=== PATIENT | female | born 1930 | race Caucasian/White ===

== ENCOUNTER 2017-05-02 15:19 | Emergency (ER) | payer MEDICARE, BC ==
--- NOTE | 2017-05-02 15:31 | EDM.PDOC ---
ED HPI GENERAL MEDICAL PROBLEM - General Chief Complaint: General Stated Complaint: Weakness Time Seen by Provider: 05/02/17 15:21 Source of Information: Reports: EMS, EMS Notes Reviewed, Family, RN, RN Notes Reviewed History Limitations: Reports: No Limitations - History of Present Illness INITIAL COMMENTS - FREE TEXT/NARRATIVE: Patient is brought to the ED at [facility] via EMS for weakness. According to EMS, family was trying to help patient get to the restroom and they were unable due to patient's weakness. No other symptoms. No other concerns outside of weakness. Patient offers no specific complaints. Patient is a resident of [facility]. She was over visiting her son today for the holiday. No falls. No head injury. No chest pain. No SOB. Onset: Today - Related Data Allergies Allergy/AdvReac Type Severity Reaction Status Date / Time codeine Allergy Edema Verified 05/02/17 16:11 Penicillins Allergy Rash Verified 05/02/17 16:11 meperidine HCl [From Demerol] AdvReac Nausea Verified 05/02/17 16:11 Home Meds: Home Meds Acetaminophen [Acetaminophen ER] 650 mg PO TID 10/24/15 [History] Benazepril [Lotensin] 10 mg PO BEDTIME 10/24/15 [History] Benazepril [Lotensin] 20 mg PO DAILY 10/24/15 [History] Budesonide [Pulmicort] 1 inh NEB DAILY 10/24/15 [History] Calcium Carbonate [Calcium] 1,250 mg PO BID 10/24/15 [History] Cholecalciferol (Vitamin D3) [Vitamin D3] 1,000 units PO DAILY 10/24/15 [History ] Cyanocobalamin (Vitamin B12) [Vitamin B12] 1 injection IM Q30D 10/24/15 [History ] Iron Polysaccharide Complex [Ferrex 150] 150 mg PO BIDMEALS 10/24/15 [History] Levothyroxine 50 mcg PO ACBREAKFAST 10/24/15 [History] Pravastatin [Pravachol] 40 mg PO DAILY 10/24/15 [History] Propranolol [Inderal] 10 mg PO BID 10/24/15 [History] amLODIPine [Norvasc] 5 mg PO DAILY 10/24/15 [History] Acetaminophen 650 mg PO Q4H PRN 05/02/17 [History] Albuterol [Ventolin HFA] 8 gm INH BID PRN 05/02/17 [History] Bisacodyl 10 mg RC DAILY PRN 05/02/17 [History] Furosemide [Lasix] 40 mg PO DAILY 05/02/17 [History] Hydrocortisone [Preparation H] 26 gm TP BID PRN 05/02/17 [History] Nitrofurantoin [place]/Macrocryst [Macrobid] 100 mg PO BID #12 cap 05/02/17 [Rx] Nystatin 15 gm TP BID PRN 05/02/17 [History] Sennosides [Senna] 8.6 mg PO BID 05/02/17 [History] risperiDONE [Risperdal] 0.5 mg PO DAILY 05/02/17 [History] risperiDONE [Risperdal] 1 mg PO DAILY 05/02/17 [History] Past Medical History HEENT History: Reports: Cataract, Macular Degeneration Cardiovascular History: Reports: Hypertension Respiratory History: Reports: Interstitial Lung Disease Genitourinary History: Reports: Urinary Incontinence Musculoskeletal History: Reports: Osteoarthritis Neurological History: Reports: TIA Endocrine/Metabolic History: Reports: Hypothyroidism - Past Surgical History HEENT Surgical History: Reports: Tonsillectomy Cardiovascular Surgical History: Reports: Carotid Endarterectomy Musculoskeletal Surgical History: Reports: Other (See Below) Social & Family History - Tobacco Use Smoking Status *Q: Never Smoker - Recreational Drug Use Recreational Drug Use: No - Living Situation & Occupation Living situation: Reports: Occupation: Retired ED ROS GENERAL - Review of Systems Review Of Systems: See Below Constitutional: Reports: Weakness. Denies: Fever, Chills HEENT: Reports: No Symptoms Respiratory: Denies: Shortness of Breath, Cough Cardiovascular: Denies: Chest Pain, Palpitations GI/Abdominal: Denies: Abdominal Pain, Nausea, Vomiting Skin: Reports: No Symptoms Neurological: Reports: No Symptoms ED EXAM, GENERAL - Physical Exam Exam: See Below Exam Limited By: No Limitations General Appearance: Alert, No Apparent Distress, Obese Head: Atraumatic, Normocephalic Neck: Supple Respiratory/Chest: No Respiratory Distress, Lungs Clear, Decreased Breath Sounds Cardiovascular: Regular Rate, Rhythm Peripheral Pulses: 2+: Radial (L), Radial (R) GI/Abdominal: Soft, Non-Tender, Abnormal Bowel Sounds (hypoactive) Extremities: Normal Inspection, Pedal Edema Neurological: Alert, Confused (chronic) Skin Exam: Warm, Dry, Intact, Normal Color, No Rash Course - Vital Signs Last Recorded V/S: Last Vital Signs Temp 37.1 C 05/02/17 15:25 Pulse 99 05/02/17 15:25 Resp 16 05/02/17 15:25 BP 115/40 L 05/02/17 15:25 Pulse Ox 94 L 05/02/17 15:25 - Orders/Labs/Meds Orders: Active Orders 24 hr Category Date Time Status Sodium Chloride 0.9% [Saline Flush] Med 05/02/17 15:32 Active 10 ml FLUSH ASDIRECTED PRN Peripheral IV Insertion Adult [OM.PC] Routine Oth 05/02/17 15:32 Ordered Medication Orders Sodium Chloride (Saline Flush) 10 ml FLUSH ASDIRECTED PRN PRN Reason: Keep Vein Open Labs: Laboratory Tests 05/02/17 05/02/17 05/02/17 Range/Units 15:35 16:05 16:05 WBC 6.9 (4.0-10.0) x10^3/uL RBC 2.84 L (4.00-5.50) x10^6/uL Hgb 8.6 L D (12.0-16.0) g/dL Hct 26.2 L (33.0-47.0) % MCV 92.3 (78.0-93.0) fL MCH 30.3 (26.0-32.0) pg MCHC 32.8 (32.0-36.0) g/dL RDW Coeff of [place] 13.1 (10.0-15.0) % Plt Count 214 (130-400) x10^3/uL Neut % (Auto) 62.1 (50.0-80.0) % Lymph % (Auto) 21.3 L (25.0-50.0) % [place] % (Auto) 12.2 H (2.0-11.0) % Eos % (Auto) 4.1 H (0.0-4.0) % Baso % (Auto) 0.3 (0.2-1.2) % Sodium 137 (136-145) mmol/L Potassium 4.0 (3.5-5.1) mmol/L Chloride 98 (98-107) mmol/L Carbon Dioxide 33 H (21-32) mmol/L BUN 26 H (7-18) mg/dL Creatinine 1.5 H (0.55-1.02) mg/dL Est Cr Clr Drug Dosing 20.33 mL/min Estimated GFR (MDRD) 33 Glucose 135 H (74-106) mg/dL Calcium 9.2 (8.5-10.1) mg/dL Urine Color Yellow (YELLOW) Urine Appearance Cloudy H (CLEAR) Urine pH 7.0 (5.0-8.0) Ur Specific [place] 1.015 Urine Protein Negative (NEGATIVE) mg/dL Urine Glucose (UA) Negative (NEGATIVE) mg/dL Urine Ketones Negative (NEGATIVE) mg/dL Urine Occult Blood Negative (NEGATIVE) Urine Nitrite Negative (NEGATIVE) Urine Bilirubin Negative (NEGATIVE) Urine Urobilinogen 0.2 (0.2) EU/dL Ur Leukocyte Esterase Small H (NEGATIVE) Urine RBC 0-5 (NOT SEEN) /HPF Urine WBC 10-20 H (NOT SEEN) /HPF Ur Squamous Epith Cells Few H (NEGATIVE) /HPF Ur Renal Epithelial Cell Rare H (NEGATIVE) /HPF Urine Bacteria Few H (NEGATIVE) /HPF Hyaline Casts Few H (NEGATIVE) /HPF Urine Mucus Rare H (NEGATIVE) /LPF Meds: Medications Generic Name Dose Route Start Last Admin Trade Name Freq PRN Reason Stop Dose Admin Sodium Chloride 10 ml 05/02/17 15:32 Saline Flush FLUSH ASDIRECTED PRN Keep Vein Open Discontinued Medications Generic Name Dose Route Start Last Admin Trade Name Freq PRN Reason Stop Dose Admin Sodium Chloride 1,000 mls @ 999 mls/hr 05/02/17 15:33 05/02/17 15:37 Normal Saline IV 05/02/17 16:33 999 mls/hr ONETIME ONE Administration Ondansetron HCl 4 mg 05/02/17 15:32 05/02/17 15:37 Zofran IVPUSH 05/02/17 15:33 4 mg ONETIME ONE Administration Departure - Departure Time of Disposition: 16:38 Disposition: Home, Self-Care 01 Condition: Good Clinical Impression: Dehydration, Weakness Urinary tract infection Qualifiers: Urinary tract infection type: acute cystitis Hematuria presence: without hematuria Qualified Code(s): N30.00 - Acute cystitis without hematuria - Discharge Information Prescriptions: Nitrofurantoin [place]/Macrocryst [Macrobid] 100 mg PO BID #12 cap Instructions: Urinary Tract Infection, Adult, Rehydration, Adult Referrals: Natalie Norman MD [Primary Care Provider] - Forms: ED Department Discharge Additional Instructions: 1. Stay well hydrated and rest 2. Take medications for the full coarse, even if you are feeling better 3. Drink cranberry juice to help with infection 4. See your Primary as symptoms warrant - Problem List Review Problem List Initiated/Reviewed/Updated: Yes - My Orders Last 24 Hours: My Active Orders 05/02/17 15:32 Sodium Chloride 0.9% [Saline Flush] 10 ml FLUSH ASDIRECTED PRN Peripheral IV Insertion Adult [OM.PC] Routine - Assessment/Plan Last 24 Hours: My Active Orders 05/02/17 15:32 Sodium Chloride 0.9% [Saline Flush] 10 ml FLUSH ASDIRECTED PRN Peripheral IV Insertion Adult [OM.PC] Routine
[2017-05-02] MEDS ORDERED: Ondansetron 4 MG/2 ML SDV IVPUSH ONE (15:32)
[2017-05-02] MEDS ORDERED: Sodium Chloride 0.9% 10 ML Syringe FLUSH PRN (15:32)
[2017-05-02] MEDS ORDERED: Sodium Chloride 0.9% 1,000 ML IV ONE (15:33)
[2017-05-02 15:58] VITALS: BP 115/40
[2017-05-02] MEDS ORDERED: Take Home: Nitrofurantoin Monohydrate/Macrocrystalline 100 MG, 2 Cap Pack PO ONE (16:42)
== END 2017-05-02 17:30 | disposition home or self-care (01) ==
LOC: VM.ED 15:19
DX: E86.0 Dehydration (principal); R53.1 Weakness; N30.90 Cystitis, unspecified without hematuria; I10 Essential (primary) hypertension; J84.9 Interstitial pulmonary disease, unspecified; M19.90 Unspecified osteoarthritis, unspecified site; Z79.899 Other long term (current) drug therapy; Z86.73 Personal history of transient ischemic attack (TIA), and cerebral infarction without residual deficits; E03.9 Hypothyroidism, unspecified
CPT/HCPCS: 36415; 80048; 81001; 85025; 96361; 96374; 99285; A9270; J2405; J7030